=== PATIENT | female | born 1980 | race Caucasian/White ===

== ENCOUNTER 2020-02-29 16:01 | Emergency (ER) | payer SELFPAY ==
[~2020-02-29] VITALS: Ht 170.2 cm; Wt 113.6 kg
[~2020-02-29 16:01] MED LIST: EFFEXOR 3737.5 MG/TA PO; GENTAMICIN OPTHA3 GM OS; NORCO 325 MG-51 TAB PO
[2020-02-29 16:07] VITALS: TEMP 98.3
[2020-02-29 17:20] VITALS: BP 136/89; PULSE 109
== END 2020-02-29 17:20 | disposition home or self-care (01) ==
LOC: COL.ER 16:01
DX: S40.012A Contusion of left shoulder, initial encounter (principal); S49.92XA Unspecified injury of left shoulder and upper arm, initial encounter; V43.52XA Car driver injured in collision with other type car in traffic accident, initial encounter